=== PATIENT | male | born 1990 | race Caucasian/White ===

== ENCOUNTER 2016-10-29 07:59 | Emergency (ER) | payer BC ==
[~2016-10-29] VITALS: Ht 170.2 cm; Wt 62.0 kg
[~2016-10-29 07:59] MED LIST: BUPROPION HCL100 MG PO; BUSPIRONE HCL10 MG PO; DEXTROAMP-AMPHE20 MG PO; ENDOCET 5-3251 EACH PO; GABAPENTIN300 MG PO; HUMALOG100 UNIT/1 SC; HYDROCODON-ACE1 EAC9 PO; INSULIN PUMP SCCONT; LEVEMIR FL100 UNITS/ SC; MEDROL DOSEPAK4 MG PO; MUSCLE RELAXER; NICORELIEF2 MG BC; NOVOLOG PE100 UNITS/ SC; OXYCODONE HCL10 MG PO; SERTRALINE HCL25 MG PO; VITAMIN D2000 UNI1 PO; [UNRECOGNIZED DRUG - OTHER] PO
[2016-10-29 09:02] LABS: POINT-OF-CARE METER ID UU14100415
[2016-10-29 09:21] LABS: BASOPHIL COUNT 0.1 K/uL (0-0.1); EOSINOPHIL (%) 0.7 % (0-5); EOSINOPHIL COUNT 0.1 K/uL (0-0.3); HEMATOCRIT 45.9 % (38.0-50.0); IMMATURE GRANULOCYTE (%) 0.3 % (0.0-0.7); INSTRUMENT ABS NEUTROPHIL CT 6.2 K/uL; LYMPHOCYTE COUNT 2.3 K/uL (1.0-2.8); MCH 29.3 PG (29.0-34.0); MCHC 33.3 G/DL (30.0-36.0); MCV 87.9 FL (86-99); MEAN PLAT.VOLUME 10.5 uM^3 (9.0-12.4); MONOCYTE (%) 9.5 % (3-12); MONOCYTE COUNT 0.9 K/uL (0-0.8); NEUTROPHIL (%) 64.3 % (45-76); NEUTROPHIL COUNT 6.2 K/uL (1.8-6.4); PLATELET COUNT 208 K/uL (156-360); RBC DIS.WIDTH-CV 12.3 % (11.8-14.6); RBC DIS.WIDTH-SD 40.1 % (39-53); RED BLOOD COUNT 5.22 M/uL (4.00-5.50); WHITE BLOOD COUNT 9.6 K/uL (4.1-10.2)
[2016-10-29 09:31] LABS: ADD MIUA? YES; BILIRUBIN NEGATIVE; BLOOD SMALL; COLOR YELLOW ((YELLOW)); GLUCOSE (STRIP) >=500; KETONES NEGATIVE; LEUKOCYTES NEGATIVE; NITRITE NEGATIVE; PROTEIN (STRIP) NEGATIVE; SPECIFIC GRAVITY 1.022 (1.000-1.030); UROBILINOGEN 0.2 MG/DL (0.2-1.0)
[2016-10-29 09:32] LABS: CHLORIDE 105 mEq/L (99-109); POTASSIUM 4.9 mEq/L (3.7-5.4); SODIUM 140 mEq/L (136-147)
[2016-10-29 09:33] LABS: GLUCOSE 317 mg/dL (70-99)
[2016-10-29 09:35] LABS: ANION GAP 13 MEQ/L (2-14)
[2016-10-29 09:36] LABS: BACTERIA NONE SEEN /HPF; EPITHELIAL CELLS NONE SEEN /HPF; MUCUS 1+ /LPF; RED BLOOD CELLS 0-5 /HPF (0-5); WHITE BLOOD CELLS 0-5 /HPF (0-5)
[2016-10-29 09:37] LABS: GFR ESTIMATE (CALCULATED) > 59 mL/min/
[2016-10-29 09:38] LABS: UREA NITROGEN (BUN) 14 mg/dL (9-23)
[2016-10-29 11:01] VITALS: BP 106/88
== END 2016-10-29 11:02 | disposition home or self-care (01) ==
LOC: EME 07:59
PROVIDERS: Physician Assistant
DX: E10.65 Type 1 diabetes mellitus with hyperglycemia (principal); Z79.4 Long term (current) use of insulin; Z96.41 Presence of insulin pump (external) (internal); F17.200 Nicotine dependence, unspecified, uncomplicated
CPT/HCPCS: 80048; 81003; 82010; 82803; 82948; 85025; 99281; 99283; J7030

== ENCOUNTER 2016-11-15 20:45 | Emergency (ER) | payer BC ==
[~2016-11-15] VITALS: Ht 170.2 cm; Wt 61.7 kg
[2016-11-15 21:09] LABS: POINT-OF-CARE METER ID UU14100415
[2016-11-15 21:41] LABS: HEMATOCRIT 45.6 % (38.0-50.0); MCH 29.5 PG (29.0-34.0); MCV 86.9 FL (86-99); MEAN PLAT.VOLUME 10.6 uM^3 (9.0-12.4); PLATELET COUNT 214 K/uL (156-360); RBC DIS.WIDTH-SD 38.4 % (39-53); RED BLOOD COUNT 5.25 M/uL (4.00-5.50)
[2016-11-15 21:41] LABS: ADD MIUA? NO; BILIRUBIN NEGATIVE; BLOOD NEGATIVE; COLOR STRAW ((YELLOW)); GLUCOSE (STRIP) NEGATIVE; KETONES 5; LEUKOCYTES NEGATIVE; NITRITE NEGATIVE; PROTEIN (STRIP) NEGATIVE; SPECIFIC GRAVITY 1.005 (1.000-1.030); UROBILINOGEN 0.2 MG/DL (0.2-1.0)
[2016-11-15 21:47] LABS: CARBON DIOXIDE (BICARBONATE) 26.5 MEQ/L (20-31)
[2016-11-15 21:50] LABS: CHLORIDE 104 mEq/L (99-109); POTASSIUM 3.9 mEq/L (3.7-5.4); SODIUM 141 mEq/L (136-147)
[2016-11-15 21:52] LABS: ADD MEDTOX COMMENT Y; AMPHETAMINE NEGATIVE (500 ng/mL); BARBITURATES NEGATIVE (200 ng/mL); BENZODIAZEPINES NEGATIVE (150 ng/mL); COCAINE NEGATIVE (150 ng/mL); INTERNAL CONTROLS VALID? YES; METHADONE NEGATIVE (200 ng/mL); METHAMPHETAMINE NEGATIVE (500 ng/mL); OPIATES (MORPHINE) NEGATIVE (100 ng/mL); OXYCODONE NEGATIVE (100 ng/mL); PHENCYCLIDINE NEGATIVE (25 ng/mL); PROPOXYPHENE NEGATIVE (300 ng/mL); THC CANNABINOIDS PRESUMPTIVE POSITIVE (50 ng/mL); TRICYCLIC ANTIDEPRESSANTS NEGATIVE (300 ng/mL)
[2016-11-15 21:52] LABS: GLUCOSE 205 mg/dL (70-99)
[2016-11-15 21:53] LABS: ANION GAP 12 MEQ/L (2-14)
[2016-11-15 21:54] LABS: TOTAL BILIRUBIN 1.1 mg/dL (0.0-1.0)
[2016-11-15 21:55] LABS: SERUM ETHYL ALCOHOL < 10 mg/dL
[2016-11-15 21:56] LABS: ALKALINE PHOSPHATASE 90 IU/L (3-129); GFR ESTIMATE (CALCULATED) > 59 mL/min/
[2016-11-15 21:57] LABS: UREA NITROGEN (BUN) 12 mg/dL (9-23)
[2016-11-15 23:22] VITALS: BP 135/75
== END 2016-11-15 23:23 | disposition home or self-care (01) ==
LOC: EME → EDBD 20:45 → EME 23:23
PROVIDERS: Emergency Medicine
DX: R55 Syncope and collapse (principal); E10.9 Type 1 diabetes mellitus without complications; Z96.41 Presence of insulin pump (external) (internal); Z79.4 Long term (current) use of insulin; F12.10 Cannabis abuse, uncomplicated; F11.10 Opioid abuse, uncomplicated; G89.29 Other chronic pain; F31.9 Bipolar disorder, unspecified; F41.9 Anxiety disorder, unspecified; F17.200 Nicotine dependence, unspecified, uncomplicated
CPT/HCPCS: 80053; 81003; 82010; 82803; 82948; 84999; 85027; 93005; 99281; 99284; G0480; J7030